=== PATIENT | female | born 1975 | race Caucasian/White ===

== ENCOUNTER → 2018-01-01 09:05 | Outpatient (CLI) | payer OTHER, SELFPAY ==
[2018-01-01 11:11] LABS: Alanine Aminotransferase 31 IU/L (9-52); Albumin 4.5 g/dL (3.5-5.0); Albumin Globulin Ratio 1.5 (1.0-2.8); Alkaline Phosphatase 50 U/L (38-126); Aspartate Aminotransferase 37 IU/L (14-36); BUN Creatinine Ratio 13.3 (6-22); Bilirubin Total 0.5 mg/dL (0.2-1.3); Blood Urea Nitrogen 12 mg/dL (7-17); Calcium 9.4 mg/dL (8.4-10.2); Carbon Dioxide 30 mmol/L (22-32); Chloride 102 mmol/L (98-107); Cholesterol 204 mg/dL (140-199); Estimated Glomerular Filt Rate > 60.0 mL/min (>60); Globulin 3.1 g/dL (1.7-4.1); Glucose 81 mg/dL (70-100); HDL Cholesterol 77 mg/dL (40-60); HEMOLYSIS < 15 (0-50); LDL Cholesterol Calculated 103 mg/dL (<100); Potassium 4.1 mmol/L (3.4-5.1); Sodium 141 mmol/L (137-145); Total Protein 7.6 g/dL (6.3-8.2); Triglycerides 122 mg/dL (35-150)
[2018-01-01 11:48] LABS: Thyroid Stimulating Hormone 2.95 uIU/mL (0.47-4.68)
== END ==
PROVIDERS: PCP Physician Assistant; Visit Provider Physician Assistant
DX: Z01.89 Encounter for other specified special examinations (principal); E03.9 Hypothyroidism, unspecified; N92.6 Irregular menstruation, unspecified
CPT/HCPCS: 36415; 80053; 80061; 84443

== ENCOUNTER → 2018-06-10 10:55 | Outpatient (CLI) | payer OTHER, SELFPAY ==
--- NOTE | 2018-06-10 10:56 | DI.MG.S_ITS ---
BILATERAL DIGITAL SCREENING MAMMOGRAM 3D/2D WITH CAD: 06/10/2018 CLINICAL: Routine screening. Comparison is made to exams dated: 02/11/2017 mammogram, 02/08/2016 mammogram, and 04/06/2013 mammogram - [facility]. The tissue of both breasts is heterogeneously dense. This may lower the sensitivity of mammography. Current study was also evaluated with a Computer Aided Detection (CAD) system. No significant masses, calcifications, or other findings are seen in either breast. There has been no significant interval change. IMPRESSION: NEGATIVE There is no mammographic evidence of malignancy. A 1 year screening mammogram is recommended. This exam was interpreted at Station ID: [id number]. NOTE: For mammograms, a report in lay terms will be sent to the patient. Approximately 15% of breast malignancies will not be visualized mammographically. In the management of a palpable breast mass, a negative mammogram must not discourage biopsy of a clinically suspicious lesion. Electronically Signed By: Francis hogan/ceci:06/10/2018 18:04:18 letter sent: Normal Exam ACR BI-RADS Category 1: Negative 3341F
== END ==
PROVIDERS: PCP Physician Assistant; Visit Provider Physician Assistant
DX: Z12.31 Encounter for screening mammogram for malignant neoplasm of breast (principal)
CPT/HCPCS: 77063; 77067

== ENCOUNTER → 2020-06-29 08:07 | Outpatient (CLI) | payer OTHER, SELFPAY ==
[2020-06-29 09:06] LABS: COVID19 -Nasal RAPID Negative (Negative)
== END ==
PROVIDERS: PCP Physician Assistant; Visit Provider Physician Assistant
DX: J34.89 Other specified disorders of nose and nasal sinuses (principal); J02.9 Acute pharyngitis, unspecified; Z20.822 Contact with and (suspected) exposure to COVID-19
CPT/HCPCS: 87070; 87635

== ENCOUNTER → 2020-09-30 09:06 | Outpatient (CLI) | payer OTHER, SELFPAY ==
[2020-09-30 12:22] LABS: COVID19 -Nasal RAPID Negative (Negative)
== END ==
PROVIDERS: PCP Physician Assistant; Visit Provider Physician Assistant
DX: Z20.822 Contact with and (suspected) exposure to COVID-19 (principal)
CPT/HCPCS: 87635

== ENCOUNTER 2020-11-22 09:19 | Emergency (ER) | payer OTHER, SELFPAY ==
[2020-11-22] VITALS (7 sets, daily range): BP systolic 100–109; BP diastolic 57–78; PULSE 68–87; RESP 17–39; TEMP 37.2; O2SAT 91–98; BMI 21.7
--- NOTE | 2020-11-22 09:26 | ED.GENADULT ---
HPI - General Adult General Chief complaint: Shortness of Breath/Dyspnea Stated complaint: PNEMONIA Time Seen by Provider: 11/22/20 09:26 History of Present Illness HPI narrative: 45-year-old woman with COVID comes in for further evaluation. Timeline is as follows: 11/05 initial cough and malaise 11/09 +covid test 11/15 7 day azithromycin started 11/16 Regeneron monoclonal ab given 11/19 flight home from [place] Additional medications include tessaln, aspirin, ivermectin, colchicine, zinc, and vitamin-C and D. She presents today with continued cough, dyspnea right-sided pleuritic chest pain radiating to the right shoulder. Tried to see PCP today but was directed to Urgent Care. Further workup was felt to be appropriate and she was directed to the emergency department. She complains of cough, minimally productive, pleuritic right-sided chest pain, fatigue, body aches has never had fevers through this entire episode. No nausea, vomiting, diarrhea, abdominal pain, palpitations. No lower extremity edema. She has some minor erythema and tenderness on the volar surface of the right forearm that looks like a superficial thrombophlebitis Related Data Previous Rx's Medication Instructions Recorded epinephrine 0.3 mg/0.3 mL 0.3 mg IJ ONCE #1 kit 01/02/17 injection, auto-injector azithromycin 250 mg tablet See Rx Instructions PO .COMPLEX #6 04/27/19 tab benzonatate 100 mg capsule 100 mg PO BID PRN #14 cap 04/27/19 (Tessalon Perles) apixaban 5 mg (74 tabs) tablets in See Rx Instructions .ROUTE 11/22/20 a dose pack (Eliquis DVT-PE Treat .COMPLEX #74 ea 30D Start) oxycodone-acetaminophen 5 mg-325 1 tab PO Q6H PRN #25 tab 11/22/20 mg tablet Allergies Allergy/AdvReac Type Severity Reaction Status Date / Time red dye [RED DYE] Allergy Severe Lips go Verified 11/22/20 09:43 numb, tongue swells and tightness in my chest Sulfa (Sulfonamide Allergy Severe Anaphylaxis Verified 11/22/20 09:43 Antibiotics) [SULFA (SULFONAMIDE ANTIBIOTICS)] amoxicillin [From AUGMENTIN] Allergy Mild Itching Verified 11/22/20 09:43 clavulanic acid Allergy Mild Itching Verified 11/22/20 09:43 [From AUGMENTIN] nabumetone [NABUMETONE] AdvReac Intermediate caused Verified 11/22/20 09:43 anxiety, palpitations, couldn't sleep Influenza Virus Vaccines AdvReac Mild FELT SICK Verified 11/22/20 09:43 [INFLUENZA VIRUS VACCINES] LIKE I HAD THE FLU, JOINT PAIN AND FATIGUE Review of Systems Review of Systems Narrative: Remainder of complete review of systems is otherwise unremarkable except for that included in the HPI. Patient History Medical History Bronchitis COVID Surgical History Status post dilation and curettage Family History Father Age: 68 Heart murmur Social History Smoking Status: Never smoker second hand exposure: No alcohol intake: current (a glass of red wine a couple of times a week.) substance use type: does not use Smoking Status: Never smoker Exam Narrative Exam Narrative: General: Healthy appearing, in no acute distress. Able to give a complete and coherent history. Well-nourished well-developed HEENT: Moist mucous membranes, normal sclera with reactive pupils, Neck: No JVD, supple Respiratory: Lungs are clear to auscultation, minor coughing, no wheezing no rales no rhonchi. Full and symmetrical air movement Cardiac: Regular rate and rhythm no murmurs no bruits Abdomen: Soft, nontender, good bowel tones, no flank pain Skin: Warm and dry, no rashes Neurologic: Grossly neurologically intact with no obvious asymmetries or abnormalities Extremities: No trauma, well perfused. Minor erythema and of palpable cord approximately 5 cm long superficial volar surface the right forearm otherwise neurovascularly intact Psych: Cooperative, appropriate insight and affect Initial Vital Signs Initial Vital Signs: Vital Signs Temperature 98.9 F 11/22/20 09:30 Pulse Rate 87 11/22/20 09:30 Respiratory Rate 22 11/22/20 09:30 Blood Pressure 109/57 L 11/22/20 09:30 Pulse Oximetry 95 11/22/20 09:30 Course Orders Ordered: Discontinued Medications Hydrocodone Bitart/Acetaminophen (Hydrocodone/Acet 10/325 Tablet) 1 tab PO NOW ONE Stop: 11/22/20 10:40 Last Admin: 11/22/20 10:48 Dose: Not Given Documented by: CATE Hydrocodone Bitart/Acetaminophen (Hydrocodone/Acet 5/325 Tablet) 1 tab PO NOW ONE Stop: 11/22/20 10:44 Last Admin: 11/22/20 10:50 Dose: 1 tab Documented by: CATE Apixaban (Apixaban 5 Mg Tablet) 5 mg PO NOW ONE Stop: 11/22/20 13:28 Last Admin: 11/22/20 13:31 Dose: 5 mg Documented by: MIGNON Ketorolac Tromethamine (Ketorolac 30 Mg/Ml Vial) 15 mg IV NOW ONE Stop: 11/22/20 09:45 Last Admin: 11/22/20 10:17 Dose: 15 mg Documented by: CATE Vital Signs Vital signs: Vital Signs - 8 hr 11/22/20 09:30 11/22/20 10:45 11/22/20 11:06 Temperature 98.9 F Pulse Rate 87 81 70 Respiratory Rate 22 17 39 H Blood Pressure 109/57 L 102/77 Pulse Oximetry 95 91 96 11/22/20 11:10 11/22/20 11:30 Temperature Pulse Rate 71 70 Respiratory Rate 22 25 H Blood Pressure 100/63 102/69 Pulse Oximetry 98 96 Medical Decision Making Lab Data Result diagrams: 11/22/20 09:47 11/22/20 09:47 Labs: Lab Results 11/22/20 11/22/20 11/22/20 Range/Units 09:47 09:47 09:47 WBC 8.7 (4.5-11.0) X10^3/uL RBC 4.10 (4.0-5.2) X10^6/uL Hgb 12.8 (12.0-16.0) g/dL Hct 37.8 (36-46) % MCV 92.4 (80-100) fL MCH 31.4 (26-34) PG MCHC 34.0 (30-36) % RDW 13.1 (11.6-14.8) % Plt Count 577 H (150-400) X10^3/uL Neut % (Auto) 73.6 (50-75) % Lymph % (Auto) 11.8 L (25-40) % Platte % (Auto) 12.9 (3-14) % Eos % (Auto) 1.3 L (2-4) % Baso % (Auto) 0.4 (0-2) % Neut # (Auto) 6400 (0113-0336) /uL Lymph # (Auto) 1000 L (0360-7384) /uL Platte # (Auto) 1100 H (0-900) /uL Eos # (Auto) 100 (0-450) /uL Baso # (Auto) 0 (0-100) /uL D-Dimer > 5250 H (<230) ng/mL Sodium 138 (137-145) mmol/L Potassium 4.4 (3.4-5.1) mmol/L Chloride 105 (98-107) mmol/L Carbon Dioxide 30 (22-32) mmol/L BUN 8 (7-17) mg/dL Creatinine 0.61 (0.52-1.04) mg/dL Estimated GFR > 60.0 (>60) mL/min BUN/Creatinine Ratio 13.1 (6-22) Glucose 97 (70-100) mg/dL Calcium 9.0 (8.4-10.2) mg/dL Total Bilirubin 0.3 (0.2-1.3) mg/dL AST 30 (14-36) IU/L ALT 28 (<35) IU/L Alkaline Phosphatase 109 (38-126) U/L Troponin I < 0.012 (0.01-0.034) ng/mL Total Protein 7.1 (6.3-8.2) g/dL Albumin 3.5 (3.5-5.0) g/dL Globulin 3.6 (1.7-4.1) g/dL Albumin/Globulin Ratio 1.0 (1.0-2.8) Point of Care Testing Test Results Negative Urine Dip Bedside Urine Glucose Negative Bedside Urine Bilirubin - Negative Bedside Urine Ketone - Negative Urine Specific Mertzon 1.010 Bedside Urine Occult Blood - Negative Bedside Urine pH 6.0 Bedside Urine Protein - Negative Bedside Urine Urobilinogen - Negative Bedside Urine Nitrite - Negative Bedside Urine Leukocytes - Negative Esterase Point of care testing: Point of Care Testing Test Results Negative Urine Dip Bedside Urine Glucose Negative Bedside Urine Bilirubin - Negative Bedside Urine Ketone - Negative Urine Specific Mertzon 1.010 Bedside Urine Occult Blood - Negative Bedside Urine pH 6.0 Bedside Urine Protein - Negative Bedside Urine Urobilinogen - Negative Bedside Urine Nitrite - Negative Bedside Urine Leukocytes - Negative Esterase Imaging Data Chest x-ray: Radiologist's Impression: FINDINGS: Surgical changes and devices: None. Lungs and pleura: No pleural effusions or pneumothorax. Bilateral consolidative opacity seen in the upper and lower lobes Mediastinum: Mediastinal contours appear normal. Heart size is normal. Bones and chest wall: No suspicious bony lesions. Overlying soft tissues appear unremarkable. IMPRESSION: Bilateral multifocal pneumonia. Dictated by: Levy Burrows M.D. on 11/22/2020 at 10:28 CT PE study: Radiologist's Impression: FINDINGS: Image quality: Excellent. Pulmonary arteries: Pulmonary arteries are normal in size. Bilateral pulmonary emboli can be seen, with filling defect seen involving the branch points of the right lower lobe pulmonary arteries and the left lower lobe pulmonary arteries, with bilateral lower lobe segmental filling defects. The right upper lobe and right middle lobe do not appear to be involved. The left upper lobe does not appear to be involved. Lungs and pleura: Bilateral patchy interstitial type infiltrates are seen. These are more prominent peripherally and inferiorly. No pleural effusions or pneumothorax. Central and peripheral airways are patent. Mediastinum: Heart size is normal, without pericardial effusion. No mediastinal or hilar adenopathy. Thoracic aorta is normal in caliber and enhancement. Esophagus is normal in caliber, without hiatal hernia. Bones and chest wall: No suspicious bony lesions. Ribs and thoracic spine appear intact throughout. Thyroid gland demonstrates no significant abnormality. No axillary or supraclavicular adenopathy. Abdomen: Visualized upper abdominal solid organs appear normal in the early arterial phase of enhancement. IMPRESSION: A small to moderate burden of pulmonary emboli can be seen involving both lower lobes. Patchy bilateral interstitial infiltrates are seen, which are consistent with the given clinical history of COVID pneumonia. Note: Case discussed by telephone with Dr. Bone at 10:30 a.m. [place] time on November 22, 2020. Dictated by: Trenton Yadav M.D. on 11/22/2020 at 10:26 [facility] Narrative Medical decision making narrative: 45-year-old otherwise healthy woman with recent COVID infection past infectious window with negative test today presents with increasing dyspnea. CTA reveals bilateral subsegmental pulmonary emboli. No evidence of sepsis. She is hemodynamically stable, saturations are in the upper 90s unless she is significantly active and she is not particularly tachycardic. Pain and cough for controlled with Percocet. She started on Eliquis with a starter pack information given and prescription written. Clearly reviewed all findings, expectations and recommendations from this point forward. All of her questions were answered. She will be following up with her primary care physician within the next couple of days. She is safe for home discharge Discharge Plan Departure Patient Disposition: Home Clinical Impression: Pulmonary embolism Qualifiers: Pulmonary embolism type: multiple subsegmental (without acute cor pulmonale) Qualified Code(s): I26.94 - Multiple subsegmental pulmonary emboli without acute cor pulmonale Instructions: DI for Pulmonary Embolism Activity Restrictions/Additional Instructions: Thank you for coming in today It sounds like it has been a challenging couple of weeks. In terms of your active COVID infection, this is now entirely resolved. You are not infectious and your COVID study today was negative. In terms of the complications of your recent COVID infection, you do have multiple small pulmonary emboli in the bottom sections of your lungs. Fortunately, your heart rate and oxygen level remain absolutely normal and it is safe for you to go home. You will need to be on anticoagulation for at least 3 months and it may be longer. I have given you a prescription for Eliquis/apixaban please roll picker this prescription and started today. With this medication you should not take nonsteroidals such as ibuprofen, Motrin, Aleve, aspirin. You can use Tylenol. For the lung pain that you are experiencing I am going to give you a prescription for Percocet. This does contain Tylenol and narcotic. It can make you constipated so please make sure you taking a stool softener with it. This can help with the lung pain from the pulmonary embolism and will also help suppress the cough that your experiencing. [facility] You will need to follow up with the primary care physician. I would encourage you to see if you can get an ER follow-up appointment for pulmonary embolism within the next week. I am glad that you have an oxygen saturation monitor at home. If you find that your saturations are dropping below 94% and staying there even at rest with deep breathing, you need to return to the ER. I hope you heal quickly Prescriptions: Evangelist Shaylee DVT-PE Treat 30D Start 5 mg (74 tabs) tablets,dose pack See Rx Instructions .ROUTE .COMPLEX Qty: 74 RF: 0 oxycodone-acetaminophen 5-325 mg tablet 1 tab PO Q6H PRN (Reason: pain) Qty: 25 RF: 0 No Action benzonatate [Tessalon Perles] 100 mg capsule 100 mg PO BID PRN (Reason: cough) Qty: 14 RF: 0 azithromycin 250 mg tablet See Rx Instructions PO .COMPLEX Qty: 6 RF: 0 epinephrine 0.3 MG/0.3 ML auto-injector 0.3 mg IJ ONCE Qty: 1 RF: 0 Referrals: Constanza Brantley MD [Primary Care Provider] -
--- NOTE | 2020-11-22 09:45 | DI.RAD.S_ITS ---
PROCEDURE: XR CHEST 1V INDICATIONS: cough post covid TECHNIQUE: One view of the chest was acquired. COMPARISON: None. FINDINGS: Surgical changes and devices: None. Lungs and pleura: No pleural effusions or pneumothorax. Bilateral consolidative opacity seen in the upper and lower lobes Mediastinum: Mediastinal contours appear normal. Heart size is normal. Bones and chest wall: No suspicious bony lesions. Overlying soft tissues appear unremarkable. IMPRESSION: Bilateral multifocal pneumonia. Dictated by: Levy Burrows M.D. on 11/22/2020 at 10:28 Approved by: Levy Burrows M.D. on 11/22/2020 at 10:30
[2020-11-22 10:03] LABS: Add Manual Diff / Slide Review NO; Basophils Absolute Auto 0 /uL (0-100); Basophils Percent Auto 0.4 % (0-2); Eosinophils Absolute Auto 100 /uL (0-450); Eosinophils Percent Auto 1.3 % (2-4); Hematocrit 37.8 % (36-46); Hemoglobin 12.8 g/dL (12.0-16.0); Lymphocytes Absolute Auto 1000 /uL (1100-4500); Lymphocytes Percent Auto 11.8 % (25-40); Mean Corpuscular Hemoglobin 31.4 PG (26-34); Mean Corpuscular Volume 92.4 fL (80-100); Monocytes Absolute Auto 1100 /uL (0-900); Monocytes Percent Auto 12.9 % (3-14); Neutrophils Absolute Auto 6400 /uL (1500-7000); Neutrophils Percent Auto 73.6 % (50-75); Platelet Count 577 X10^3/uL (150-400); Red Cell Distribution Width 13.1 % (11.6-14.8); White Blood Cell Count 8.7 X10^3/uL (4.5-11.0)
[2020-11-22 10:17] LABS: Alanine Aminotransferase 28 IU/L (<35); Albumin 3.5 g/dL (3.5-5.0); Alkaline Phosphatase 109 U/L (38-126); Aspartate Aminotransferase 30 IU/L (14-36); BUN Creatinine Ratio 13.1 (6-22); Bilirubin Total 0.3 mg/dL (0.2-1.3); Blood Urea Nitrogen 8 mg/dL (7-17); Carbon Dioxide 30 mmol/L (22-32); Chloride 105 mmol/L (98-107); Estimated Glomerular Filt Rate > 60.0 mL/min (>60); Globulin 3.6 g/dL (1.7-4.1); Glucose 97 mg/dL (70-100); HEMOLYSIS < 15 (0-50); Potassium 4.4 mmol/L (3.4-5.1); Sodium 138 mmol/L (137-145); Total Protein 7.1 g/dL (6.3-8.2)
[2020-11-22] MEDS: KETOROLAC 30 MG/ML VIAL 15 MG IV (10:17)
[2020-11-22 10:28] LABS: Troponin I < 0.012 ng/mL (0.01-0.034)
[2020-11-22 10:30] LABS: D Dimer > 5250 ng/mL (<230)
[2020-11-22] MEDS: HYDROCODONE/ACET 5/325 TABLET 1 TAB PO (10:50)
--- NOTE | 2020-11-22 11:11 | DI.CT.S_ITS ---
PROCEDURE: CT ANGIO CHEST PE PROTOCOL INDICATIONS: elevated D dimer TECHNIQUE: After the administration of intravenous contrast, 2 mm thick sections acquired from the pulmonary apices to the posterior costophrenic angles. 3-dimensional maximum intensity projection (MIP) coronal and sagittal reformats were then acquired through the thorax. For radiation dose reduction, the following was used: automated exposure control, adjustment of mA and/or kV according to patient size. COMPARISON: [facility], CR, XR CHEST 1V, 11/22/2020, 9:53. FINDINGS: Image quality: Excellent. Pulmonary arteries: Pulmonary arteries are normal in size. Bilateral pulmonary emboli can be seen, with filling defect seen involving the branch points of the right lower lobe pulmonary arteries and the left lower lobe pulmonary arteries, with bilateral lower lobe segmental filling defects. The right upper lobe and right middle lobe do not appear to be involved. The left upper lobe does not appear to be involved. Lungs and pleura: Bilateral patchy interstitial type infiltrates are seen. These are more prominent peripherally and inferiorly. No pleural effusions or pneumothorax. Central and peripheral airways are patent. Mediastinum: Heart size is normal, without pericardial effusion. No mediastinal or hilar adenopathy. Thoracic aorta is normal in caliber and enhancement. Esophagus is normal in caliber, without hiatal hernia. Bones and chest wall: No suspicious bony lesions. Ribs and thoracic spine appear intact throughout. Thyroid gland demonstrates no significant abnormality. No axillary or supraclavicular adenopathy. Abdomen: Visualized upper abdominal solid organs appear normal in the early arterial phase of enhancement. IMPRESSION: A small to moderate burden of pulmonary emboli can be seen involving both lower lobes. Patchy bilateral interstitial infiltrates are seen, which are consistent with the given clinical history of COVID pneumonia. Note: Case discussed by telephone with Dr. Bone at 10:30 a.m. [place] time on November 22, 2020. Dictated by: Trenton Yadav M.D. on 11/22/2020 at 10:26 Approved by: Trenton Yadav M.D. on 11/22/2020 at 10:31
[2020-11-22] MEDS: APIXABAN 5 MG TABLET PO (13:31)
--- NOTE | 2020-11-22 13:31 | PC.NURSE ---
pt called to inform RN and MD that rx for eliquis would not be available at pharmacy until tomorrow. first rx dose ordered by MD Dr Keith to be started today. Med given and order and med verified by RN. 5 mg Eliquis PO x1 dose, rest of RX to be available tomorrow at pharmacy.
== END 2020-11-22 12:20 | disposition home or self-care (01) ==
PROVIDERS: Emergency Provider Emergency Medicine; PCP Student in an Organized Health Care Education/Training Program
DX: I26.94 Multiple subsegmental thrombotic pulmonary emboli without acute cor pulmonale (principal); Z86.16 Personal history of COVID-19; Z79.01 Long term (current) use of anticoagulants; Z20.822 Contact with and (suspected) exposure to COVID-19
CPT/HCPCS: 36415; 71045; 71275; 80053; 81003; 81025; 84484; 85025; 85379; 87635; 96374; 99285; J1885; Q9967

== ENCOUNTER → 2020-11-30 08:02 | Outpatient (CLI) | payer OTHER, SELFPAY ==
--- NOTE | 2020-11-30 08:05 | DI.RAD.S_ITS ---
PROCEDURE: XR CHEST 2V INDICATIONS: sob pna TECHNIQUE: 2 views of the chest were acquired. COMPARISON: [facility], , XR CHEST 1V, 11/22/2020, 9:53. FINDINGS: Surgical changes and devices: None. Lungs and pleura: Scattered airspace opacity in bilateral lung albert are seen with interval slight improvement of bilateral lung aeration compared to 11/22/2020 study. No pleural effusions or pneumothorax. Mediastinum: Mediastinal contours are normal. Heart size is normal. Bones and chest wall: No suspicious bony abnormalities. Soft tissues appear unremarkable. IMPRESSION: Finding is suggestive of resolving bilateral multilobar infiltrates. No significant pleural effusion or pneumothorax. Dictated by: Fredo Vega M.D. on 11/30/2020 at 8:42 Approved by: Fredo Vega M.D. on 11/30/2020 at 8:43
[2020-11-30 09:35] LABS: Add Manual Diff / Slide Review NO; Basophils Absolute Auto 0 /uL (0-100); Basophils Percent Auto 0.8 % (0-2); Eosinophils Absolute Auto 100 /uL (0-450); Eosinophils Percent Auto 2.4 % (2-4); Hematocrit 39.6 % (36-46); Hemoglobin 13.3 g/dL (12.0-16.0); Lymphocytes Absolute Auto 1500 /uL (1100-4500); Lymphocytes Percent Auto 32.1 % (25-40); Mean Corpuscular HGB Conc 33.7 % (30-36); Mean Corpuscular Hemoglobin 31.6 PG (26-34); Mean Corpuscular Volume 93.8 fL (80-100); Monocytes Absolute Auto 500 /uL (0-900); Neutrophils Absolute Auto 2500 /uL (1500-7000); Neutrophils Percent Auto 54.7 % (50-75); Platelet Count 427 X10^3/uL (150-400); Red Blood Cell Count 4.22 X10^6/uL (4.0-5.2); Red Cell Distribution Width 13.5 % (11.6-14.8); White Blood Cell Count 4.6 X10^3/uL (4.5-11.0)
[2020-11-30 09:52] LABS: Alanine Aminotransferase 24 IU/L (<35); Albumin 3.9 g/dL (3.5-5.0); Albumin Globulin Ratio 1.3 (1.0-2.8); Alkaline Phosphatase 70 U/L (38-126); Aspartate Aminotransferase 35 IU/L (14-36); BUN Creatinine Ratio 15.1 (6-22); Bilirubin Total 0.5 mg/dL (0.2-1.3); Blood Urea Nitrogen 11 mg/dL (7-17); Calcium 9.1 mg/dL (8.4-10.2); Carbon Dioxide 28 mmol/L (22-32); Chloride 104 mmol/L (98-107); Cholesterol 207 mg/dL (140-199); Estimated Glomerular Filt Rate > 60.0 mL/min (>60); Globulin 3.1 g/dL (1.7-4.1); Glucose 85 mg/dL (70-100); HDL Cholesterol 52 mg/dL (40-60); HEMOLYSIS < 15 (0-50); LDL Cholesterol Calculated 130 mg/dL (<100); Potassium 4.4 mmol/L (3.4-5.1); Sodium 137 mmol/L (137-145); Triglycerides 125 mg/dL (35-150)
[2020-11-30 10:00] LABS: INR 1.3 (0.9-1.3); Prothrombin Time 14.6 SECONDS (10.1-12.7)
[2020-11-30 10:09] LABS: D Dimer 1832 ng/mL (<230)
[2020-11-30 10:34] LABS: TSH w/ Reflex to FT4 4.04 uIU/mL (0.47-4.68)
== END ==
PROVIDERS: PCP Student in an Organized Health Care Education/Training Program; Referring Provider Family Medicine; Visit Provider Family Medicine
DX: I26.94 Multiple subsegmental thrombotic pulmonary emboli without acute cor pulmonale (principal); E03.9 Hypothyroidism, unspecified; E78.5 Hyperlipidemia, unspecified; U07.1 COVID-19; J06.9 Acute upper respiratory infection, unspecified; J40 Bronchitis, not specified as acute or chronic
CPT/HCPCS: 36415; 71046; 80053; 80061; 84443; 85025; 85379; 85610

== ENCOUNTER → 2021-01-18 09:04 | Outpatient (CLI) | payer OTHER, SELFPAY ==
[2021-01-18 11:28] LABS: TSH w/ Reflex to FT4 1.62 uIU/mL (0.47-4.68)
== END ==
PROVIDERS: PCP Family Medicine; Referring Provider Family Medicine; Visit Provider Family Medicine
DX: E03.9 Hypothyroidism, unspecified (principal)
CPT/HCPCS: 36415; 84443

== ENCOUNTER → 2021-01-20 14:00 | Outpatient (CLI) | payer OTHER, SELFPAY ==
--- NOTE | 2021-01-20 14:00 | DI.MG.S_ITS ---
BILATERAL DIGITAL SCREENING MAMMOGRAM 3D/2D WITH CAD: 01/20/2021 CLINICAL: Routine screening. Comparison is made to exams dated: 06/10/2018 mammogram, 02/11/2017 mammogram, and 02/08/2016 mammogram - [facility]. The tissue of both breasts is heterogeneously dense. This may lower the sensitivity of mammography. Current study was also evaluated with a Computer Aided Detection (CAD) system. No significant masses, calcifications, or other findings are seen in either breast. There has been no significant interval change. IMPRESSION: NEGATIVE There is no mammographic evidence of malignancy. A 1 year screening mammogram is recommended. This exam was interpreted at Station ID: [id number]. NOTE: For mammograms, a report in lay terms will be sent to the patient. Approximately 15% of breast malignancies will not be visualized mammographically. In the management of a palpable breast mass, a negative mammogram must not discourage biopsy of a clinically suspicious lesion. Electronically Signed By: Xiomara alexandra/ceci:01/22/2021 10:22:30 letter sent: Normal Exam ACR BI-RADS Category 1: Negative [id number]
== END ==
PROVIDERS: PCP Family Medicine; Referring Provider Family Medicine; Visit Provider Family Medicine
DX: Z12.31 Encounter for screening mammogram for malignant neoplasm of breast (principal)
CPT/HCPCS: 77063; 77067

== ENCOUNTER → 2021-01-22 15:29 | Outpatient (CLI) | payer OTHER, SELFPAY ==
--- NOTE | 2021-03-01 17:01 | P.HOLT.S_ITS ---
Rn Neonatal Report Referral & Results Date Patient Seen: 02/07/21 Requesting provider: Jesu Mcnally Indication: Palpitations Duration of monitoring (days): 8 Diary information: There were 20 patient triggered events and 2 patient diary entries All of these patient events were associated with sinus rhythm only Data: Minimum heart rate identified was 54 beats per minute at 04:48 on 02/13/2021 Maximum heart rate was 177 beats per minute at 09:02 on 02/10/2021 Less than 1% of identified beats were ventricular or supraventricular ectopic in origin, which would classify them as rare. 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 Patient events do not appear to be associated with any cardiac dysrhythmia.
== END ==
PROVIDERS: PCP Family Medicine; Referring Provider Family Medicine; Visit Provider Family Medicine
DX: R00.2 Palpitations (principal)
CPT/HCPCS: 93242; 93244

== ENCOUNTER → 2021-02-01 08:00 | Outpatient (CLI) | payer OTHER, SELFPAY ==
--- NOTE | 2021-02-01 08:01 | DI.ECHO.S_ITS ---
[facility] +---------+ [facility] +---------+ : : [address] : : : : [id number] : : : : Phone: [phone]+ Echocardiogram Report + + :Name: KRISTEN NUÑEZ Study Date: 02/01/2021 Height: 66 in : :[facility] ReadingLocation: Weight: 130 lb : : Gender: Female BSA: 1.7 m2 : :: 1975 Age: 45 yrs BP: 114/87 mmHg: :Reason For Study: EMBOLISM WITHOUT COR PULMONALE, CHEST : :DISCOMFORT, PALPITATIONS : :Ordering Physician: AJAY, : :CHAPO Performed By: Yamila Perez : :Referring: CHAPO MOSS : + + Interpretation Summary Left ventricular systolic function appears normal with an estimated ejection fraction of 55 to 60% without any focal wall motion abnormality. Left ventricular size and wall thickness are normal with probable normal diastolic function and probable normal filling pressures. The right ventricle appears normal in size and systolic function. Right ventricular systolic pressure cannot be estimated but CVP is likely around 3 mmHg. Both atria are normal in size. There is no significant valvular abnormality. The ascending aorta is at the upper limits of normal in size. Procedure: A two-dimensional transthoracic echocardiogram with color flow and Doppler was performed. The study quality was technically adequate. There is no prior echocardiogram noted for this patient. The patient was in sinus rhythm with heart rates between 60-75 bpm during the exam. Left Ventricle: The left ventricle appears normal in size, wall thickness, and systolic function without any focal wall motion abnormalities. The ejection fraction is estimated to be 55-60%. Diastolic parameters suggest probable normal left ventricular diastolic function and normal filling pressures. Right Ventricle: The right ventricle is normal in size and function. Atria: Both atria are normal in size. There is no Doppler evidence for an interatrial shunt. Mitral Valve: The mitral valve is normal in structure and function. There is trace mitral regurgitation. Aortic Valve: The aortic valve is trileaflet. The aortic valve opens well. There is no aortic valve stenosis. No aortic regurgitation is present. Tricuspid Valve: The tricuspid valve is normal in structure and function. There is trace tricuspid regurgitation. Pulmonary artery pressures cannot be estimated because of the lack of a measurable TR jet velocity but the IVC suggests a CVP of around 3 mmHg. Pulmonic Valve: The pulmonic valve leaflets are thin and pliable; valve motion is normal. There is trace pulmonic regurgitation. There is no significant valvular heart disease. Great Vessels: The aortic root is normal size. The ascending aorta is at the upper limits of normal in size. The IVC is of normal diameter and collapses greater than 50% with a sniff. This suggests a low right atrial pressure of 3 mm Hg. Pericardium/ Pleura There is no pericardial effusion. There is no pleural effusion. MMode/2D Measurements & Calculations LVIDd: 4.3 cm LVOT diam: 2.2 cm LVIDs: 3.3 cm Ao root diam: 3.5 cm FS: 24.1 % asc Aorta Diam: 3.4 cm IVSd: 0.69 cm Ao Arch Diam (Prox Trans): 2.7 cm LVPWd: 0.62 cm LV hawley. diameter/BSA (cm/m^2): 2.6 LV sys. diameter/BSA (cm/m^2): 2.0 LA A2 area: 13.5 cm2 RA long axis: 4.7 cm LA A4 area: 13.5 cm2 RA area: 13.3 cm2 LA length (vol): 4.2 cm RA vol: 31.7 ml LA vol: 37.3 ml RA : 19.1 ml/m2 LA vol index: 22.4 ml/m2 IVC diam: 1.3 cm RVD1 (basal): 3.2 cm TAPSE: 1.7 cm Doppler Measurements & Calculations Ao V2 max: 104.7 cm/sec LVOT Max Anurag: 84.1 cm/sec Ao V2 mean: 75.7 cm/sec LV V1 max P.8 mmHg Ao max P.4 mmHg LV V1 VTI: 19.5 cm Ao mean P.5 mmHg GREGORIA(I,D): 2.9 cm2 Ao V2 VTI: 24.8 cm GREGORIA(V,D): 3.0 cm2 sev ratio: 0.79 GREGORIA indexed to BSA (cm^2/m^2): 1.8 MV E max anurag: 85.4 cm/sec PA V2 max: 89.9 cm/sec MV A max anurag: 63.4 cm/sec PA V2 mean: 57.7 cm/sec MV E/A: 1.3 PA mean P.6 mmHg Med Peak E' Anurag: 11.0 cm/sec PA pr(Accel): 20.8 mmHg E/E' med: 7.8 Lat Peak E' Anurag: 13.6 cm/sec E/E' lat: 6.3 E/e' average: 7.0 MV dec time: 0.17 sec SV(OT): 72.4 ml Reading Physician:09:18 AM
== END ==
PROVIDERS: PCP Family Medicine; Referring Provider Family Medicine; Visit Provider Family Medicine
DX: I26.99 Other pulmonary embolism without acute cor pulmonale (principal); R07.89 Other chest pain; R00.2 Palpitations
CPT/HCPCS: 93306

== ENCOUNTER → 2021-03-05 09:07 | Outpatient (CLI) | payer OTHER, SELFPAY ==
[2021-03-14 16:02] LABS: SARS-CoV-2 Antibody Titer >2500.0
== END ==
PROVIDERS: PCP Family Medicine; Referring Provider Family Medicine; Visit Provider Family Medicine
DX: Z20.822 Contact with and (suspected) exposure to COVID-19 (principal)
CPT/HCPCS: 36415; 86769

== ENCOUNTER → 2021-10-25 12:29 | Outpatient (CLI) | payer OTHER, SELFPAY ==
--- NOTE | 2021-10-25 12:30 | DI.US.S_ITS ---
PROCEDURE: US PERIPH VENOUS LOW EXTREM LT INDICATIONS: left leg aches TECHNIQUE: Real-time imaging, as well as color and pulse Doppler interrogation, were performed of the lower extremity deep veins from the inguinal ligament to the popliteal fossa. COMPARISON: None. FINDINGS: The common femoral, femoral and popliteal veins are normally compressible, and free of intraluminal thrombus. Color and pulse Doppler demonstrate normal phasic intraluminal flow. There is normal augmentation response to distal compression maneuver. IMPRESSION: Negative for deep venous thrombosis. Dictated by: Trenton Yadav M.D. on 10/25/2021 at 13:01 Approved by: Trenton Yadav M.D. on 10/25/2021 at 13:03
== END ==
PROVIDERS: PCP Family Medicine; Referring Provider Internal Medicine Hematology & Oncology; Visit Provider Internal Medicine Hematology & Oncology
DX: I26.99 Other pulmonary embolism without acute cor pulmonale (principal); M79.605 Pain in left leg
CPT/HCPCS: 93971

== ENCOUNTER → 2022-06-26 10:00 | Outpatient (CLI) | payer OTHER, SELFPAY ==
--- NOTE | 2022-06-26 10:01 | DI.RAD.S_ITS ---
PROCEDURE: XR CHEST 2V INDICATIONS: Burning sensation with breaths TECHNIQUE: 2 views of the chest were acquired. COMPARISON: [facility], CR, XR CHEST 2V, 11/30/2020, 8:16. [facility], CR, XR CHEST 1V, 11/22/2020, 9:53. FINDINGS: Surgical changes and devices: None. Lungs and pleura: Lungs are clear. No pleural effusions or pneumothorax. Mediastinum: Mediastinal contours are normal. Heart size is normal. Bones and chest wall: No suspicious bony abnormalities. Soft tissues appear unremarkable. IMPRESSION: No acute cardiopulmonary process. Dictated by: Ortiz Huston M.D. on 06/26/2022 at 10:24 Approved by: Ortiz Huston M.D. on 06/26/2022 at 10:24
== END ==
PROVIDERS: PCP Family Medicine; Referring Provider Family Medicine; Visit Provider Family Medicine
DX: J06.9 Acute upper respiratory infection, unspecified (principal); J40 Bronchitis, not specified as acute or chronic
CPT/HCPCS: 71046

== ENCOUNTER → 2022-10-18 13:39 | Outpatient (CLI) | payer OTHER, SELFPAY ==
--- NOTE | 2022-10-18 13:40 | DI.RAD.S_ITS ---
PROCEDURE: XR WRIST LT MIN 3V INDICATIONS: Pain at 1st left MCP and CMC TECHNIQUE: A total of 4 views of the wrist were acquired. COMPARISON: None. FINDINGS: Bones: No fractures or dislocations. No suspicious bony lesions. Scaphoid view: No trauma or appreciable degenerative change. Soft tissues: No suspicious soft tissue calcifications. IMPRESSION: The area of pain appears centered on the base of the 1st metacarpal and 1st metacarpal-phalangeal joints. No trauma or appreciable degenerative osteoarthritic changes are found in these areas, nor is there evidence of erosive arthritis. Dictated by: Kailash Gipson M.D. on 10/18/2022 at 14:21 Approved by: Kailash Gipson M.D. on 10/18/2022 at 14:23
--- NOTE | 2022-10-18 13:40 | DI.RAD.S_ITS ---
PROCEDURE: XR HAND LT MIN 3V INDICATIONS: Pain at 1st left MCP TECHNIQUE: 3 views of the hand(s) acquired. COMPARISON: None. FINDINGS: Bones: No fractures or dislocations. Carpal bones are normally aligned. No suspicious bony lesions. Soft tissues: No suspicious soft tissue calcifications. IMPRESSION: No acute fracture or dislocation. No significant degenerative changes. Dictated by: Vinny Landaverde M.D. on 10/18/2022 at 15:29 Approved by: Vinny Landaverde M.D. on 10/18/2022 at 15:30
== END ==
PROVIDERS: PCP Family Medicine; Referring Provider Physician Assistant; Visit Provider Physician Assistant
DX: M79.645 Pain in left finger(s) (principal)
CPT/HCPCS: 73110; 73130

== ENCOUNTER → 2022-12-05 12:25 | Outpatient (CLI) | payer OTHER, SELFPAY ==
--- NOTE | 2022-12-05 12:28 | DI.RAD.S_ITS ---
PROCEDURE: XR CHEST 2V INDICATIONS: productive cough 6wk, SHOB exertion, viral sx initially TECHNIQUE: 2 views of the chest were acquired. COMPARISON: [facility], CR, XR CHEST 2V, 06/26/2022, 10:09. [facility], CR, XR CHEST 2V, 11/30/2020, 8:16. FINDINGS: Surgical changes and devices: None. Lungs and pleura: Lungs are clear. No pleural effusions or pneumothorax. Mediastinum: Mediastinal contours are normal. Heart size is normal. Bones and chest wall: No suspicious bony abnormalities. Soft tissues appear unremarkable. IMPRESSION: No acute cardiopulmonary abnormality is seen. Dictated by: Ortiz Huston M.D. on 12/05/2022 at 13:06 Approved by: Ortiz Huston M.D. on 12/05/2022 at 13:06
[2022-12-05 12:56] LABS: D Dimer 517 ng/ml (<500)
== END ==
PROVIDERS: PCP Family Medicine; Referring Provider Student in an Organized Health Care Education/Training Program; Visit Provider Student in an Organized Health Care Education/Training Program
DX: R05.8 Other specified cough (principal); R06.02 Shortness of breath; Z86.711 Personal history of pulmonary embolism
CPT/HCPCS: 36415; 71046; 85379

== ENCOUNTER 2022-12-05 16:00 | Emergency (ER) | payer OTHER, SELFPAY ==
[2022-12-05 16:09] VITALS: BP 151/81; PULSE 67; RESP 16; TEMP 36.1; O2SAT 100; BMI 22.4
--- NOTE | 2022-12-05 16:32 | DI.CT.S_ITS ---
PROCEDURE: CT ANGIO CHEST PE PROTOCOL INDICATIONS: r/o PE, history of TECHNIQUE: After the administration of intravenous contrast, 2 mm thick sections acquired from the pulmonary apices to the posterior costophrenic angles. 3-dimensional maximum intensity projection (MIP) coronal and sagittal reformats were then acquired through the thorax. For radiation dose reduction, the following was used: automated exposure control, adjustment of mA and/or kV according to patient size. COMPARISON: [facility], CT, CT ANGIO CHEST PE PROTOCOL, 11/22/2020, 10:56. [facility], CR, XR CHEST 2V, 12/05/2022, 12:53. FINDINGS: Image quality: Excellent. Pulmonary arteries: Pulmonary arteries are normal in size, and demonstrate no intraluminal filling defects to suggest central pulmonary embolism. Lungs and pleura: There is a poorly defined nodule seen involving the superior medial right upper lobe, as on series 5, image 105, with the central portion measuring up to 9 mm. No pleural effusions or pneumothorax. Central and peripheral airways are patent. Mediastinum: Heart size is normal, without pericardial effusion. No mediastinal or hilar adenopathy. Thoracic aorta is normal in caliber and enhancement. Esophagus is normal in caliber, without hiatal hernia. Bones and chest wall: No suspicious bony lesions. Ribs and thoracic spine appear intact throughout. Thyroid gland demonstrates no significant abnormality. No axillary or supraclavicular adenopathy. Abdomen: Visualized upper abdominal solid organs appear normal in the early arterial phase of enhancement. IMPRESSION: Negative for pulmonary embolism. Within the right upper lobe, there is a poorly defined nodular opacity seen, which is felt most likely be related to a focus of infection. - Please consider a noncontrast chest CT in 6-12 weeks for further evaluation of this lesion. Dictated by: Trenton Yadav M.D. on 12/05/2022 at 16:07 Approved by: Trenton Yadav M.D. on 12/05/2022 at 16:09
[2022-12-05 16:47] LABS: Prothrombin Time 11.5 SECONDS (10.1-12.7)
[2022-12-05 16:50] LABS: Lactate (Lactic Acid) 0.8 mmol/L (0.7-2.1)
[2022-12-05 16:51] LABS: Alanine Aminotransferase 27 IU/L (<35); Albumin 4.3 g/dL (3.5-5.0); Albumin Globulin Ratio 1.4 (1.0-2.8); Alkaline Phosphatase 58 U/L (38-126); Aspartate Aminotransferase 31 IU/L (14-36); BUN Creatinine Ratio 20.6 (6-22); Bilirubin Total 0.4 mg/dL (0.2-1.3); Blood Urea Nitrogen 14 mg/dL (7-17); Calcium 8.7 mg/dL (8.4-10.2); Carbon Dioxide 25 mmol/L (22-32); Chloride 104 mmol/L (98-107); Estimated Glomerular Filt Rate > 60 mL/min (>60); Globulin 3.1 g/dL (1.7-4.1); Glucose 91 mg/dL (70-100); HEMOLYSIS < 15 (0-50); Potassium 3.9 mmol/L (3.4-5.1); Sodium 136 mmol/L (137-145); Total Protein 7.4 g/dL (6.3-8.2)
[2022-12-05 16:58] LABS: Add Manual Diff / Slide Review NO; Basophils Absolute Auto 100 /uL (0-100); Basophils Percent Auto 0.9 % (0-2); Eosinophils Absolute Auto 300 /uL (0-450); Hematocrit 38.8 % (36-46); Hemoglobin 13.7 g/dL (12.0-16.0); Lymphocytes Absolute Auto 2000 /uL (1100-4500); Lymphocytes Percent Auto 28.4 % (25-40); Mean Corpuscular HGB Conc 35.2 % (30-36); Mean Corpuscular Hemoglobin 32.4 PG (26-34); Monocytes Absolute Auto 600 /uL (0-900); Monocytes Percent Auto 8.6 % (3-14); Neutrophils Absolute Auto 4200 /uL (1500-7000); Neutrophils Percent Auto 58.1 % (50-75); Platelet Count 338 X10^3/uL (150-400); Red Blood Cell Count 4.22 X10^6/uL (4.0-5.2); Red Cell Distribution Width 12.8 % (11.6-14.8); White Blood Cell Count 7.2 X10^3/uL (4.5-11.0)
[2022-12-05 17:02] LABS: NT-proBNP (BNP-Adult 18+) 27 pg/mL (<125); Troponin I < 0.012 ng/mL (0.01-0.034)
--- NOTE | 2022-12-05 18:29 | ED_ITS ---
HPI - General Adult General Chief complaint: Shortness of Breath/Dyspnea Stated complaint: D-dimer elevated per pt Time Seen by Provider: 12/05/22 18:17 Source: patient Mode of arrival: Ambulatory Limitations: no limitations History of Present Illness HPI narrative: Patient is a 47-year-old female who is sent to the emergency department for evaluation. She was seen earlier in the day at the walk-in clinic. Had a chest x-ray and labs performed. Chest x-ray showed no signs of pneumonia. Had an elevated D-dimer. She had COVID pneumonia approximately 2 years ago. She did have a pulmonary embolism afterwards. She was on blood thinners for a period of time but has been off those now for several months. She states that for the past month she has had heaviness in her chest. Shortness of breath with exert ion. Cough. No fevers. It is a nonproductive cough. Related Data Previous Rx's Medication Instructions Recorded azithromycin 250 mg tablet See Rx Instructions PO .COMPLEX #6 12/05/22 (Zithromax Z-Chalino) tabs Allergies Allergy/AdvReac Type Severity Reaction Status Date / Time Sulfa (Sulfonamide Allergy Severe Anaphylaxis Verified 12/05/22 16:15 Antibiotics) [SULFA (SULFONAMIDE ANTIBIOTICS)] amoxicillin [From AUGMENTIN] Allergy Mild Itching Verified 12/05/22 16:15 clavulanic acid Allergy Mild Itching Verified 12/05/22 16:15 [From AUGMENTIN] nabumetone [NABUMETONE] AdvReac Intermediate caused Verified 12/05/22 16:15 anxiety, palpitations, couldn't sleep Influenza Virus Vaccines AdvReac Mild FELT SICK Verified 12/05/22 16:15 [INFLUENZA VIRUS VACCINES] LIKE I HAD THE FLU, JOINT PAIN AND FATIGUE Review of Systems Constitutional Constitutional: Reports system reviewed and no additional complaints, except as documented ENT Ears, Nose, Mouth, and Throat: Reports system reviewed and no additional complaints, except as documented Cardiovascular Cardiovascular: Reports system reviewed and no additional complaints, except as documented Respiratory Respiratory: Reports system reviewed and no additional complaints, except as documented Musculoskeletal Musculoskeletal: Reports system reviewed and no additional complaints, except as documented Integumentary/Breasts Skin/Breast: Reports system reviewed and no additional complaints, except as documented Hematologic/Lymphatic On Anticoagulants: No Patient History Medical History Bronchitis COVID Hyperlipidemia Surgical History Status post dilation and curettage Family History Father Age: 70 Heart murmur Mother Oliva syndrome Social History Smoking Status: Never smoker second hand exposure: No alcohol intake: current (wine 5 days a week. ) substance use type: does not use Smoking Status: Never smoker alcohol intake frequency: a few times a week Substance Use Type: does not use Exam Initial Vital Signs Initial Vital Signs: Vital Signs Temperature 97.0 F L 12/05/22 16:09 Pulse Rate 67 12/05/22 16:09 Respiratory Rate 16 12/05/22 16:09 Blood Pressure 151/81 H 12/05/22 16:09 Pulse Oximetry 100 12/05/22 16:09 Oxygen Delivery Method Room Air 12/05/22 16:09 Const General: cooperative, comfortable and No ill appearing HENNC Head: normal to inspection and normocephalic Resp Effort & Inspection: normal respiratory effort Auscultation: clear to auscultation bilaterally Cardio Rate: regular rate Skin General: no rashes or lesions noted Neuro General: patient alert, patient awake and moves all extremities Extrem General: normal to inspection and capillary refill normal Course Orders Ordered: ED Orders 12/05/22 16:16 Measure peak expiratory flow ONCE RT Consult Eval and Treat NOW 12/05/22 16:22 EKG-12 Lead Stat 12/05/22 16:30 Complete Blood Count AUTO DIFF Stat Comprehensive Metabolic Panel Stat Lactate (Lactic Acid) Stat NT-proBNP (BNP-Adult 18+) Stat Prothrombin Time INR Stat Troponin I Stat 12/05/22 16:32 CT angio chest PE protocol Stat Vital Signs Vital signs: Vital Signs - 8 hr 12/05/22 18:45 Pulse Rate 71 Respiratory Rate 18 Blood Pressure 117/81 Pulse Oximetry 99 Oxygen Delivery Method Room Air Medical Decision Making Medical Records Medical records reviewed: Yes I reviewed the patient's medical records. Lab Data Lab results reviewed: Yes I reviewed the patient's lab results. 12/05/22 16:30 12/05/22 16:30 Labs: Lab Results 12/05/22 12/05/22 12/05/22 Range/Units 16:30 16:30 16:30 WBC 7.2 (4.5-11.0) X10^3/uL RBC 4.22 (4.0-5.2) X10^6/uL Hgb 13.7 (12.0-16.0) g/dL Hct 38.8 (36-46) % MCV 92.0 (80-100) fL MCH 32.4 (26-34) PG MCHC 35.2 (30-36) % RDW 12.8 (11.6-14.8) % Plt Count 338 (150-400) X10^3/uL Neut % (Auto) 58.1 (50-75) % Lymph % (Auto) 28.4 (25-40) % [place] % (Auto) 8.6 (3-14) % Eos % (Auto) 4.0 (2-4) % Baso % (Auto) 0.9 (0-2) % Neut # (Auto) 4200 (6843-3624) /uL Lymph # (Auto) 2000 (6069-2976) /uL [place] # (Auto) 600 (0-900) /uL Eos # (Auto) 300 (0-450) /uL Baso # (Auto) 100 (0-100) /uL PT 11.5 (10.1-12.7) SECONDS INR 1.0 (0.9-1.3) Sodium 136 L (137-145) mmol/L Potassium 3.9 (3.4-5.1) mmol/L Chloride 104 (98-107) mmol/L Carbon Dioxide 25 (22-32) mmol/L BUN 14 (7-17) mg/dL Creatinine 0.68 (0.52-1.04) mg/dL Estimated GFR > 60 (>60) mL/min BUN/Creatinine Ratio 20.6 (6-22) Glucose 91 (70-100) mg/dL Lactate (0.7-2.1) mmol/L Calcium 8.7 (8.4-10.2) mg/dL Total Bilirubin 0.4 (0.2-1.3) mg/dL AST 31 (14-36) IU/L ALT 27 (<35) IU/L Alkaline Phosphatase 58 (38-126) U/L Troponin I < 0.012 (0.01-0.034) ng/mL NT-Pro-B Natriuret Pep 27 (<125) pg/mL Total Protein 7.4 (6.3-8.2) g/dL Albumin 4.3 (3.5-5.0) g/dL Globulin 3.1 (1.7-4.1) g/dL Albumin/Globulin Ratio 1.4 (1.0-2.8) 12/05/22 Range/Units 16:30 WBC (4.5-11.0) X10^3/uL RBC (4.0-5.2) X10^6/uL Hgb (12.0-16.0) g/dL Hct (36-46) % MCV (80-100) fL MCH (26-34) PG MCHC (30-36) % RDW (11.6-14.8) % Plt Count (150-400) X10^3/uL Neut % (Auto) (50-75) % Lymph % (Auto) (25-40) % [place] % (Auto) (3-14) % Eos % (Auto) (2-4) % Baso % (Auto) (0-2) % Neut # (Auto) (5209-4409) /uL Lymph # (Auto) (2865-9098) /uL [place] # (Auto) (0-900) /uL Eos # (Auto) (0-450) /uL Baso # (Auto) (0-100) /uL PT (10.1-12.7) SECONDS INR (0.9-1.3) Sodium (137-145) mmol/L Potassium (3.4-5.1) mmol/L Chloride (98-107) mmol/L Carbon Dioxide (22-32) mmol/L BUN (7-17) mg/dL Creatinine (0.52-1.04) mg/dL Estimated GFR (>60) mL/min BUN/Creatinine Ratio (6-22) Glucose (70-100) mg/dL Lactate 0.8 (0.7-2.1) mmol/L Calcium (8.4-10.2) mg/dL Total Bilirubin (0.2-1.3) mg/dL AST (14-36) IU/L ALT (<35) IU/L Alkaline Phosphatase (38-126) U/L Troponin I (0.01-0.034) ng/mL NT-Pro-B Natriuret Pep (<125) pg/mL Total Protein (6.3-8.2) g/dL Albumin (3.5-5.0) g/dL Globulin (1.7-4.1) g/dL Albumin/Globulin Ratio (1.0-2.8) Imaging Data CT scan - chest: Radiologist's Impression: PROCEDURE:? CT ANGIO CHEST PE PROTOCOL ? INDICATIONS:? r/o PE, history of ? TECHNIQUE:? After the administration of intravenous contrast, 2 mm thick sections acquired from the pulmonary apices to the posterior costophrenic angles.? 3-dimensional maximum intensity projection (MIP) coronal and sagittal reformats were then acquired through the thorax.? For radiation dose reduction, the following was used:? automated exposure control, adjustment of mA and/or kV according to patient size.? ? COMPARISON:? [facility], CT, CT ANGIO CHEST PE PROTOCOL, 11/22/2020, 10:56.? [facility], CR, XR CHEST 2V, 12/05/2022, 12:53. ? FINDINGS:? Image quality:? Excellent.? ? Pulmonary arteries:? Pulmonary arteries are normal in size, and demonstrate no intraluminal filling defects to suggest central pulmonary embolism.? ? Lungs and pleura:? There is a poorly defined nodule seen involving the superior medial right upper lobe, as on series 5, image 105, with the central portion measuring up to 9 mm. No pleural effusions or pneumothorax.? Central and peripheral airways are patent.? ? Mediastinum:? Heart size is normal, without pericardial effusion.? No mediastinal or hilar adenopathy.? Thoracic aorta is normal in caliber and enhancement.? Esophagus is normal in caliber, without hiatal hernia.? ? Bones and chest wall:? No suspicious bony lesions.? Ribs and thoracic spine appear intact throughout.? Thyroid gland demonstrates no significant abnormality.? No axillary or supraclavicular adenopathy.? ? Abdomen:? Visualized upper abdominal solid organs appear normal in the early arterial phase of enhancement.? IMPRESSION:? Negative for pulmonary embolism. ? Within the right upper lobe, there is a poorly defined nodular opacity seen, which is felt most likely be related to a focus of infection.? - Please consider a noncontrast chest CT in 6-12 weeks for further evaluation of this lesion. ECG Data Attestation: I personally reviewed and interpreted this ECG as follows: Interpretation: Sinus rhythm Ventricular rate is 71 on normal axis Normal QRS Normal QTC No ST T wave changes MDM Narrative Medical decision making narrative: CT scan shows no pulmonary embolism. There is a nodular opacity in the right upper lung which potentially could be pneumonia given her symptoms treating with a course of antibiotics is not unreasonable in this case. No indication to restart any blood thinning medication. Plan will be to treat with antibiotics. She was informed that she is going to need follow-up with her primary doctor for repeat scanning to see if the nodular opacity improves. She was given return precautions. She expressed understanding and agreement. Discharge Plan Departure Patient Disposition: Home Clinical Impression: Pneumonia, Pulmonary nodule Instructions: DI for Pulmonary Nodule Activity Restrictions/Additional Instructions: I do recommend that you take the antibiotics as directed. I also recommend that you make a follow-up appoint with your primary doctor as you are going to need a repeat evaluation in 6-12 months given the nodule that was seen on the CT scan. Return to the emergency department for new or worsening symptoms. Prescriptions: New azithromycin [Zithromax Z-Chalino] 250 mg tablet See Rx Instructions .ROUTE .COMPLEX Qty: 6 0RF Rx Instructions: For 250 mg dose pack: take 500 mg today (day 1), then 250 mg for 4 days (days 2-5) Referrals: Jesu Mcnally MD [Primary Care Provider] - Stand Alone Forms: Patient Portal/API
[2022-12-05 18:45] VITALS: BP 117/81; PULSE 71; RESP 18; O2SAT 99
--- NOTE | 2022-12-05 18:45 | PC.NURSE ---
Resp assessment done by provider
== END 2022-12-05 18:46 | disposition home or self-care (01) ==
PROVIDERS: Emergency Medicine; Emergency Provider Emergency Medicine; PCP Family Medicine
DX: J18.9 Pneumonia, unspecified organism (principal); R91.1 Solitary pulmonary nodule; R05.8 Other specified cough; R06.02 Shortness of breath; Z86.711 Personal history of pulmonary embolism
CPT/HCPCS: 36415; 71046; 71275; 80053; 83605; 83880; 84484; 85025; 85379; 85610; 93005; 93010; 99283; 99284; Q9967

== ENCOUNTER → 2023-01-16 17:01 | Outpatient (CLI) | payer OTHER, SELFPAY ==
--- NOTE | 2023-01-16 17:03 | DI.MG.S_ITS ---
BILATERAL DIGITAL SCREENING MAMMOGRAM 3D/2D WITH CAD: 01/16/2023 CLINICAL: Routine screening. Comparison is made to exams dated: 01/20/2021 mammogram, 06/10/2018 mammogram, and 02/11/2017 mammogram - [facility]. Both breasts are heterogeneously dense, which may obscure small masses (category c / 51-75% glandular tissue). Current study was also evaluated with a Computer Aided Detection (CAD) system. No significant masses, calcifications, or other findings are seen in either breast. There has been no significant interval change. IMPRESSION: NEGATIVE There is no mammographic evidence of malignancy. A 1 year screening mammogram is recommended. Based on the Tyrer Cuzick model (a risk assessment model) the patient's lifetime risk is 14.3% and her 10 year risk is 2.9%. According to the ACR, ACS, and NCCN guidelines, an annual breast MRI exam along with mammogram is recommended if the patient's lifetime risk is 20% or greater. This exam was interpreted at Station ID: [id number]. NOTE: For mammograms, a report in lay terms will be sent to the patient. Approximately 15% of breast malignancies will not be visualized mammographically. In the management of a palpable breast mass, a negative mammogram must not discourage biopsy of a clinically suspicious lesion. Electronically Signed By: Roberto escalante/ceci:01/17/2023 13:41:57 letter sent: Normal Exam ACR BI-RADS Category 1: Negative 3341F
== END ==
PROVIDERS: PCP Family Medicine; Referring Provider Family Medicine; Visit Provider Family Medicine
DX: Z12.31 Encounter for screening mammogram for malignant neoplasm of breast (principal)
CPT/HCPCS: 77063; 77067

== ENCOUNTER → 2023-01-19 11:46 | Outpatient (CLI) | payer OTHER, SELFPAY ==
--- NOTE | 2023-01-19 11:47 | DI.CT.S_ITS ---
PROCEDURE: CT CHEST WO CON INDICATIONS: f/u on nodular opacity on previous chest angio. LEIA Interpretation requested TECHNIQUE: Noncontrast 5 mm thick sections acquired from the pulmonary apices to the posterior costophrenic angles. 1 mm lung window, 5 mm thick coronal and sagittal and 7 mm axial MIP reformats were then acquired. For radiation dose reduction, the following was used: automated exposure control, adjustment of mA and/or kV according to patient size. COMPARISON: [facility], CT, CT ANGIO CHEST PE PROTOCOL, 12/05/2022, 16:38. FINDINGS: Image quality: Excellent. Lungs and pleura: Within the right upper lobe azygos recess, a spiculated nodules again noted, internally unchanged from the prior exam. Remainder the lungs are clear Mediastinum: Heart size is normal. No pericardial effusion. No mediastinal adenopathy by size criteria. Thoracic aorta and central pulmonary arteries are normal in size. Esophagus is normal in caliber. No hiatal hernia. Bones and chest wall: No suspicious bony lesions. No vertebral body compression fractures. No axillary or supraclavicular adenopathy by size criteria. Thyroid gland un remark . Abdomen: Visualized upper abdominal solid organs and bowel loops appear normal in the absence of contrast. IMPRESSION: Persistent right upper lobe spiculated nodule. Given the lack of short-term improvement or resolution, neoplasm should be considered. Approved by: Timbo Randolph M.D. on 01/19/2023 at 11:12
== END ==
PROVIDERS: PCP Family Medicine; Referring Provider Family Medicine; Visit Provider Family Medicine
DX: R91.1 Solitary pulmonary nodule (principal)
CPT/HCPCS: 71250

== ENCOUNTER → 2023-08-22 07:15 | Outpatient (CLI) | payer OTHER, SELFPAY ==
[2023-08-22 09:52] LABS: Add Manual Diff / Slide Review NO; Basophils Absolute Auto 0 /uL (0-100); Basophils Percent Auto 1.2 % (0-2); Eosinophils Absolute Auto 200 /uL (0-450); Eosinophils Percent Auto 4.1 % (2-4); Hematocrit 41.3 % (36-46); Hemoglobin 14.1 g/dL (12.0-16.0); Lymphocytes Absolute Auto 1600 /uL (1100-4500); Lymphocytes Percent Auto 39.6 % (25-40); Mean Corpuscular HGB Conc 34.2 % (30-36); Mean Corpuscular Hemoglobin 32.6 PG (26-34); Mean Corpuscular Volume 95.5 fL (80-100); Monocytes Absolute Auto 400 /uL (0-900); Monocytes Percent Auto 9.6 % (3-14); Neutrophils Absolute Auto 1800 /uL (1500-7000); Neutrophils Percent Auto 45.5 % (50-75); Platelet Count 274 X10^3/uL (150-400); Red Blood Cell Count 4.33 X10^6/uL (4.0-5.2); Red Cell Distribution Width 12.7 % (11.6-14.8)
[2023-08-22 10:10] LABS: Alanine Aminotransferase 20 IU/L (<35); Albumin 4.4 g/dL (3.5-5.0); Albumin Globulin Ratio 1.9 (1.0-2.8); Alkaline Phosphatase 49 U/L (38-126); Aspartate Aminotransferase 30 IU/L (14-36); Bilirubin Total 0.8 mg/dL (0.2-1.3); Blood Urea Nitrogen 12 mg/dL (7-17); Calcium 8.7 mg/dL (8.4-10.2); Carbon Dioxide 26 mmol/L (22-32); Chloride 105 mmol/L (98-107); Cholesterol 194 mg/dL (140-199); Estimated Glomerular Filt Rate > 60 mL/min (>60); Globulin 2.3 g/dL (1.7-4.1); Glucose 82 mg/dL (70-100); HDL Cholesterol 91 mg/dL (40-60); HEMOLYSIS < 15 (0-50); LDL Cholesterol Calculated 91 mg/dL (<100); Potassium 4.3 mmol/L (3.4-5.1); Sodium 138 mmol/L (137-145); Total Protein 6.7 g/dL (6.3-8.2); Triglycerides 62 mg/dL (35-150)
[2023-08-22 10:36] LABS: TSH w/ Reflex to FT4 4.19 uIU/mL (0.47-4.68)
[2023-08-23 05:30] LABS: Apolipoprotein B 76 mg/dL (<90)
== END ==
PROVIDERS: PCP Family Medicine; Referring Provider Family Medicine; Visit Provider Family Medicine
DX: I26.99 Other pulmonary embolism without acute cor pulmonale (principal); E78.5 Hyperlipidemia, unspecified; E03.9 Hypothyroidism, unspecified
CPT/HCPCS: 36415; 80053; 80061; 82172; 84443; 85025